=== PATIENT | male | born 1990 | race American Indian/Alaskan Native ===

== ENCOUNTER 2019-08-08 03:23 | Emergency (ER) | payer SELFPAY ==
[2019-08-08] MEDS ORDERED: ALBUTEROL 2.5 MG/3 ML NEBU IH ONE ×2 (03:37→05:28)
[2019-08-08] MEDS ORDERED: MAGNESIUM SULFATE 2 GM/50 ML BAG IV ONE (03:37)
[2019-08-08] MEDS ORDERED: IPRATROPIUM 0.02% NEBU 2.5 ML IH ONE (03:37)
--- NOTE | 2019-08-08 03:40 | Emergency Department Report ---
ED Shortness of Breath HPI - General Chief Complaint: Dyspnea/Respdistress Stated Complaint: RAPHAEL Time Seen by Provider: 08/08/19 03:29 Source: EMS Mode of arrival: Stretcher Limitations: No Limitations - History of Present Illness Initial Comments: 29-year-old male with a past medical history of asthma and sickle cell trait presents to the hospital planing of 1.5 weeks of increased wheezing and shortness of breath that worsened this evening. Tonight symptoms were not improved with multiple home nebulized treatment. Patient received 125 Solu-Medrol in route in addition albuterol 2.5 nebulized treatment provided by EMS. Patient is not currently on home steroids. Denies previous history of intubations. Complains of a cough productive of clear sputum tonight. He denies fever, recent travel, known coronavirus exposure, calf tenderness, leg edema, history of PE/DVT. Patient complains of chest tightness with deep inspiration and denies pleuritic chest pain - Related Data Previous Rx's Medication Instructions Recorded Last Taken Type Albuterol Sulfate [Ventolin HFA] 2 puff IH Q4H PRN #1 hfa.aer.ad 09/28/14 Unknown Rx Amoxicillin [Trimox CAP] 500 mg PO Q8H #30 capsule 09/28/14 Unknown Rx predniSONE [Deltasone] 40 mg PO QDAY #10 tab 09/28/14 Unknown Rx predniSONE [Deltasone] 50 mg PO QDAY #5 tab 08/25/15 Unknown Rx ALBUTEROL NEB's [Proventil 0.083% 2.5 mg IH TID PRN #30 neb 08/08/19 Unknown Rx NEBS] Albuterol Sulfate [Proventil Hfa] 1 - 2 puff IH Q4HR PRN #1 08/08/19 Unknown Rx hfa.aer.ad Prednisone [predniSONE 10 mg 10 mg PO .TAPER #1 tab.ds.pk 08/08/19 Unknown Rx (6-Day Pack, 21 Tabs)] Allergies Allergy/AdvReac Type Severity Reaction Status Date / Time No Known Allergies Allergy Unverified 09/28/14 19:05 ED Review of Systems ROS: Stated complaint: RAPHAEL Other details as noted in HPI Comment: All other systems reviewed and negative ED Past Medical Hx - Past Medical History Previous Medical History?: Yes Hx Sickle Cell Disease: Yes (TRAIT ONLY) Hx Asthma: Yes - Social History Smoking Status: Former Smoker Substance Use Type: Marijuana - Medications Home Medications: Home Medications Medication Instructions Recorded Confirmed Last Taken Type Albuterol Sulfate [Ventolin HFA] 2 puff IH Q4H PRN #1 hfa.aer.ad 09/28/14 Unknown Rx Amoxicillin [Trimox CAP] 500 mg PO Q8H #30 capsule 09/28/14 Unknown Rx predniSONE [Deltasone] 40 mg PO QDAY #10 tab 09/28/14 Unknown Rx predniSONE [Deltasone] 50 mg PO QDAY #5 tab 08/25/15 Unknown Rx ALBUTEROL NEB's [Proventil 0.083% 2.5 mg IH TID PRN #30 neb 08/08/19 Unknown Rx NEBS] Albuterol Sulfate [Proventil Hfa] 1 - 2 puff IH Q4HR PRN #1 08/08/19 Unknown Rx hfa.aer.ad Prednisone [predniSONE 10 mg 10 mg PO .TAPER #1 tab.ds.pk 08/08/19 Unknown Rx (6-Day Pack, 21 Tabs)] ED Physical Exam - General Limitations: No Limitations - Other Other exam information: General: No acute distress Head: Atraumatic Eyes: normal appearance ENT: Moist mucous membranes Neck: Normal appearance, no midline tenderness Chest: Clear to auscultation bilaterally, chest wall nontender CV: Regular rate and rhythm Abdomen: Soft, normal bowel sounds, nontender, nondistended, no rebound or guarding Back: Normal inspection Extremity: Normal inspection, full range of motion, no calf tenderness or leg edema Neuro: Alert O x 3, no facial asymmetry, speech clear, no gross motor sensory deficit Psych: Appropriate behavior Skin: No rash ED Course Vital Signs 08/08/19 08/08/19 08/08/19 03:28 03:29 03:46 Temperature 97.7 F Pulse Rate 97 H 100 H 78 Pulse Rate [ Posterior Bilateral Throughout] Pulse Rate [ Throughout] Respiratory 20 20 15 Rate Respiratory Rate [Posterior Bilateral Throughout] Respiratory Rate [ Throughout] Blood Pressure 165/94 166/103 Blood Pressure 166/103 [Left] O2 Sat by Pulse 96 95 93 Oximetry 08/08/19 08/08/19 08/08/19 03:52 04:00 04:15 Temperature Pulse Rate 83 81 Pulse Rate [ 84 Posterior Bilateral Throughout] Pulse Rate [ Throughout] Respiratory 18 13 Rate Respiratory 16 Rate [Posterior Bilateral Throughout] Respiratory Rate [ Throughout] Blood Pressure 133/86 166/103 Blood Pressure [Left] O2 Sat by Pulse 94 97 Oximetry 08/08/19 08/08/19 08/08/19 04:30 04:45 05:00 Temperature Pulse Rate 82 80 92 H Pulse Rate [ Posterior Bilateral Throughout] Pulse Rate [ 100 H Throughout] Respiratory 13 16 17 Rate Respiratory Rate [Posterior Bilateral Throughout] Respiratory 18 Rate [ Throughout] Blood Pressure 131/96 131/96 142/85 Blood Pressure [Left] O2 Sat by Pulse 98 98 92 Oximetry 08/08/19 05:15 Temperature Pulse Rate 98 H Pulse Rate [ Posterior Bilateral Throughout] Pulse Rate [ Throughout] Respiratory 17 Rate Respiratory Rate [Posterior Bilateral Throughout] Respiratory Rate [ Throughout] Blood Pressure 142/85 Blood Pressure [Left] O2 Sat by Pulse 91 Oximetry - Reevaluation(s) Reevaluation #1: 08/08/19 05:28 pt feeling much better after addition of magnesium and bronchodilators no audible wheeze Saturation ranges from 91 to 94% Patient tolerated ambulation with O2 sat 92% before and after ambulation Given borderline hypoxia patient will be provided additional treatment and observed further pt marlee be prepped for d/c and signed out to on coming provider Dr Conroy to reassess ED Medical Decision Making - Radiology Data Radiology results: report reviewed CHEST 1 VIEW [id number] INDICATION / CLINICAL INFORMATION: sob/wheezing. COMPARISON: None available. FINDINGS: SUPPORT DEVICES: None HEART / MEDIASTINUM: No significant abnormality. LUNGS / PLEURA: No significant pulmonary or pleural abnormality. No pneumothorax. ADDITIONAL FINDINGS: No significant additional findings. IMPRESSION: No significant acute abnormality - Medical Decision Making asthma exacerbation improving with ed tx s/o to Dr Conroy to reassess to see if sx improve prior to d/c pt was provided a spacer by respiratory therapist - Differential Diagnosis Asthma, pneumonia, bronchitis, viral, seasonal allergies Critical Care Time: No Critical care attestation.: If time is entered above; I have spent that time in minutes in the direct care of this critically ill patient, excluding procedure time. ED Disposition Clinical Impression: Acute asthma exacerbation Disposition: DC-01 TO HOME OR SELFCARE Is pt being admited?: No Does the pt Need Aspirin: No Condition: Stable Instructions: Asthma (ED) Additional Instructions: Take the medication as prescribed. Follow-up with your doctor or doctor/clinic provided. Return if symptoms worsen as indicated by your discharge instructions. Prescriptions: Prednisone [predniSONE 10 mg (6-Day Pack, 21 Tabs)] 10 mg PO .TAPER #1 tab.ds.pk ALBUTEROL NEB's [Proventil 0.083% NEBS] 2.5 mg IH TID PRN #30 neb PRN Reason: Wheezing Albuterol Sulfate [Proventil Hfa] 1 - 2 puff IH Q4HR PRN #1 hfa.aer.ad PRN Reason: Wheezing Referrals: [facility] MD RONNI [Primary Care Provider] - 3-5 Days MIGDALIA DAIGLE MD [Staff Physician] - 3-5 Days ([employer]) DEBBI WEBB MD [Staff Physician] - 3-5 Days (Primary care doctor)
--- NOTE | 2019-08-08 04:29 | XRay Report ---
CHEST 1 VIEW [id number] INDICATION / CLINICAL INFORMATION: sob/wheezing. COMPARISON: None available. FINDINGS: SUPPORT DEVICES: None HEART / MEDIASTINUM: No significant abnormality. LUNGS / PLEURA: No significant pulmonary or pleural abnormality. No pneumothorax. ADDITIONAL FINDINGS: No significant additional findings. IMPRESSION: No significant acute abnormality Signer Name: Glen English MD Signed: 08/08/2019 4:25 AM Workstation Name: [id number]
[2019-08-08 06:23] VITALS: BP 146/64
== END 2019-08-08 06:23 | disposition home or self-care (01) ==
LOC: ED 03:23
DX: J45.901 Unspecified asthma with (acute) exacerbation (principal); D57.1 Sickle-cell disease without crisis; F12.10 Cannabis abuse, uncomplicated; Z87.891 Personal history of nicotine dependence; Z79.2 Long term (current) use of antibiotics; Z79.899 Other long term (current) drug therapy
CPT/HCPCS: 71045; 94640; 94644; 96365; 99284; J3475

== ENCOUNTER 2021-04-16 01:08 | Emergency (ER) | payer SELFPAY ==
[2021-04-16 01:41] VITALS: BP 166/80
== END 2021-04-16 06:30 | disposition left against medical advice (07) ==
LOC: ED 01:08
DX: J45.909 Unspecified asthma, uncomplicated (principal); Z53.21 Procedure and treatment not carried out due to patient leaving prior to being seen by health care provider